=== PATIENT | female | born 1970 | race Caucasian/White ===

== ENCOUNTER 2022-06-23 14:40 | Outpatient (CLI) | payer OTHER, SELFPAY ==
--- NOTE | 2022-06-23 15:00 | CRLHL7_ITS ---
For Patients: As a result of the Century Cures Act, medical imaging exams and procedure reports are released immediately into your electronic medical record. You may view this report before your referring provider. If you have questions, please contact your health care provider. BILATERAL SCREENING MAMMOGRAM WITH COMPUTER-AIDED DETECTION AND TOMOSYNTHESIS TECHNIQUE: CC and MLO views were obtained. These mammographic images have been obtained using full-field digital technique. These mammographic images were interpreted with the benefit of computer-aided detection. Breast tomosynthesis was used in this interpretation. COMPARISON FILM: 06/20/21, 06/06/20, 05/30/19. FINDINGS: The breasts are heterogeneously dense, which may obscure small masses. IMPRESSION: There is no radiographic evidence for malignancy. ASSESSMENT: BI-RADS Category 1: Negative RECOMMENDATION: Routine screening mammogram in 1 year. A lay language report of this examination will be provided to the patient. CAL EDWARDS M.D. Diagnostic Radiologist [email or web address] Transcribed: 2:[address]/Dictated by: Cal Edwards MD @ 06/24/2022 9:13:00 AM (Electronically Signed)
== END 2022-06-23 14:41 | disposition home or self-care (01) ==
LOC: MAMMO 14:43
PROVIDERS: Visit Provider Family Medicine
DX: Z12.31 Encounter for screening mammogram for malignant neoplasm of breast (principal); R92.2 Inconclusive mammogram
CPT/HCPCS: 77063; 77067

== ENCOUNTER 2022-10-19 13:15 | Outpatient (CLI) | payer OTHER, SELFPAY ==
[2022-10-19 10:06] LABS: Albumin* 4.3 g/dL (3.3-5.0); Chloride* 104 mmol/L (96-114); Potassium* 4.1 mmol/L (3.6-5.1); Sodium* 139 mmol/L (135-149)
[2022-10-19 10:08] LABS: Carbon Dioxide* 29 mmol/L (20-32); Cholesterol* 220 mg/dL (90-199); Creatinine* 0.8 mg/dL (0.5-1.5); Estimated Glomerular Filt Rate 88 ml/min
[2022-10-19 10:09] LABS: Alanine Aminotransferase* 29 U/L (4-35); Alkaline Phosphatase* 53 U/L (40-150); Aspartate Amino Transferase* 30 U/L (12-35); Bilirubin Total* 0.9 mg/dL (0.1-1.5); Blood Urea Nitrogen* 13 mg/dL (7-30); Calcium* 9.2 mg/dL (8.4-10.6); Glucose* 114 mg/dL (60-115); HDL Cholesterol* 40 mg/dL (>=50); LDL Cholesterol Calculated 144 mg/dL (<100); Total Protein* 7.3 g/dL (6.0-8.3); Triglycerides* 182 mg/dL (40-149)
== END 2022-10-19 13:16 | disposition home or self-care (01) ==
PROVIDERS: Visit Provider Family Medicine
DX: E78.5 Hyperlipidemia, unspecified (principal)
CPT/HCPCS: 80053; 80061

== ENCOUNTER 2023-07-09 12:41 | Outpatient (CLI) | payer OTHER, SELFPAY ==
--- NOTE | 2023-07-09 13:00 | CRLHL7_ITS ---
For Patients: As a result of the Century Cures Act, medical imaging exams and procedure reports are released immediately into your electronic medical record. You may view this report before your referring provider. If you have questions, please contact your health care provider. BILATERAL SCREENING MAMMOGRAM WITH COMPUTER-AIDED DETECTION AND TOMOSYNTHESIS TECHNIQUE: CC and MLO views were obtained. These mammographic images have been obtained using full-field digital technique. These mammographic images were interpreted with the benefit of computer-aided detection. Breast Tomosynthesis was used in this interpretation. COMPARISON FILM: 06/23/22, 06/20/21, 06/06/20. FINDINGS: The breasts are heterogeneously dense, which may obscure small masses IMPRESSION: There is no radiographic evidence for malignancy. ASSESSMENT: BI-RADS Category 1: Negative RECOMMENDATION: Routine screening mammogram in 1 year. A lay language report of this examination will be provided to the patient. Cal Kimbrough M.D. Diagnostic Radiologist [email or web address] OSCAR/Dictated by: Cal Kimbrough MD @ 07/12/2023 11:58:00 AM (Electronically Signed)
== END 2023-07-09 12:42 | disposition home or self-care (01) ==
LOC: MAMMO 12:42
PROVIDERS: PCP Family Medicine; Visit Provider Family Medicine
DX: Z12.31 Encounter for screening mammogram for malignant neoplasm of breast (principal); R92.2 Inconclusive mammogram
CPT/HCPCS: 77063; 77067

== ENCOUNTER 2023-10-21 07:24 | Outpatient (CLI) | payer OTHER, SELFPAY | END 2023-10-21 07:25 | disposition home or self-care (01) | LOC: NFLDREF 13:39 | PROVIDERS: PCP Family Medicine; Referring Provider Family Medicine; Visit Provider Family Medicine | DX: Z01.419 Encounter for gynecological examination (general) (routine) without abnormal findings (principal); R10.9 Unspecified abdominal pain; E78.5 Hyperlipidemia, unspecified; R73.01 Impaired fasting glucose; R53.83 Other fatigue | CPT/HCPCS: 80053; 80061 ==

== ENCOUNTER 2023-10-26 07:56 | Outpatient (CLI) | payer OTHER, SELFPAY | END 2023-10-26 07:57 | disposition home or self-care (01) | PROVIDERS: PCP Family Medicine; Visit Provider Family Medicine | DX: R10.33 Periumbilical pain (principal) | CPT/HCPCS: 82150; 83690 ==

== ENCOUNTER 2023-11-02 08:25 | Outpatient (CLI) | payer OTHER, SELFPAY ==
--- NOTE | 2023-11-02 09:00 | CT_ITS ---
Patient: WENDY PRATER Facility:?[facility] Patient ID:?[id number] Site Patient ID:?[id number] Site :?[id number] Study:?CT-Abdomen/Pelvis W/ 64CC ISOVUE 370-11/02/2023 9:24:03 AM Ordering Physician:WILIAM Final Report: INDICATION: Right lower quadrant abdominal pain TECHNIQUE: Axial images were obtained from the diaphragm to the pubic symphysis. Reformats were obtained in the coronal and sagittal plane. IV Contrast: 64 cc Isovue 370 Oral Contrast: None COMPARISON: None. FINDINGS: Lower chest: Unremarkable. Liver: Unremarkable. Normal in size and attenuation. No masses. Gallbladder and bile ducts: Unremarkable. No stones or inflammation. No biliary dilatation. Spleen: Unremarkable. Normal in size without mass. Pancreas: Unremarkable. No mass or inflammation. Adrenal glands: Unremarkable. No nodules. Kidneys: Unremarkable. No masses, stones, or hydronephrosis. Vasculature: Unremarkable. GI tract: No dilated loops of large or small intestine with a large amount of stool within the colon. Appendix unremarkable. Pelvis: Lobulation of the uterus consistent with leiomyomata. Large pelvic mass centrally within the pelvis measuring 9.5 x 13.2 x 12.6 centimeters. This is inseparable from the fundus of the uterus and extends cephalad to the level of the umbilicus. Bones: Unremarkable for age. IMPRESSION: Large pelvic solid mass measuring up to 13.2 centimeters involving most of the pelvis extending to the level of the umbilicus. Differential diagnosis includes a pedunculated fibroid or ovarian mass. Follow-up pelvic ultrasound or alternatively pelvic MRI considering its size suggested for further characterization. Please note that all CT scans at this facility use dose modulation, iterative reconstruction, and/or weight-based dosing when appropriate to reduce radiation dose to as low as reasonably achievable. Dictated by Sd Coleman MD @ 11/02/2023 9:41:49 AM ----- ADDENDUM ----- Results confirmed with Dr. Lutz at 12:06 on 11/02/2023. Dictated by Sd Colemna MD @ Nov 02 2023 12:10PM Signed by:?Sd Coleman MD @11/02/2023 9:41:49 AM (Electronic Signature)
== END 2023-11-02 08:26 | disposition home or self-care (01) ==
PROVIDERS: PCP Family Medicine; Visit Provider Family Medicine
DX: R19.00 Intra-abdominal and pelvic swelling, mass and lump, unspecified site (principal); D25.9 Leiomyoma of uterus, unspecified; R93.89 Abnormal findings on diagnostic imaging of other specified body structures; R10.9 Unspecified abdominal pain
CPT/HCPCS: 74177; Q9967

== ENCOUNTER 2023-11-03 15:37 | Outpatient (CLI) | payer OTHER, SELFPAY ==
--- NOTE | 2023-11-03 16:00 | US_ITS ---
Patient: WENDY PRATER Facility:?[facility] Patient ID:?[id number] Site Patient ID:?[id number]. Site :?[id number] Study:?US-Pelvis TA/TV-11/03/2023 4:48:50 PM Ordering Physician:WILIAM Final Report: INDICATION: Uterine mass seen on CT. Incident of postmenopausal bleeding. TECHNIQUE: Transabdominal and transvaginal scanning was performed. Transvaginal scanning was performed to optimally evaluate the endometrium and adnexa. Ovarian blood flow was evaluated with color-flow doppler. COMPARISON: Abdomen/pelvis CT of 11/02/2023 FINDINGS: A 14.0 x 13.0 x 9.3 cm subserosal fibroid arises from the posterior uterine fundus. Excluding this fibroid, the uterus measures 9.1 x 3.2 x 4.0 cm. The postmenopausal endometrial stripe is thickened at 6 mm. The right ovary is not visualized. The left ovary is normal in appearance, measuring 1.8 x 1.1 x 0.9 cm. Left ovarian blood flow is demonstrated with color-flow doppler. No adnexal mass is evident. A tiny amount of free fluid is noted. IMPRESSION: 1. 14.0 x 13.0 x 9.3 cm subserosal posterior uterine fundal fibroid. 2. Mildly thickened post menopausal endometrial stripe at 6 mm. 3. Tiny amount of free fluid. Dictated by Deepak Lerner MD @ 11/04/2023 9:10:46 AM Signed by:?Deepak Lerner MD @11/04/2023 9:10:46 AM (Electronic Signature)
== END 2023-11-03 15:38 | disposition home or self-care (01) ==
LOC: US 15:38
PROVIDERS: PCP Family Medicine; Visit Provider Family Medicine
DX: R19.00 Intra-abdominal and pelvic swelling, mass and lump, unspecified site (principal); D25.9 Leiomyoma of uterus, unspecified; R93.89 Abnormal findings on diagnostic imaging of other specified body structures
CPT/HCPCS: 76830; 76856

== ENCOUNTER 2023-11-23 12:05 | Inpatient (IN) | payer OTHER, SELFPAY ==
[2023-11-23] VITALS (20 sets, daily range): BP systolic 93–145; BP diastolic 66–89; PULSE 65–94; RESP 14–26; TEMP 36.1–37.4; O2SAT 95–99; BMI 24.5
[2023-11-23 08:59] LABS: Ur HCG Qualitative* Negative (Negative)
[2023-11-23] MEDS: SODIUM CHLORIDE 0.9 % (FLUSH) 10 ML SYRINGE IVF (09:00)
[2023-11-23] MEDS: LACTATED RINGERS 1000 ML 1,000 ML 100 ML IV ×2 (09:00→10:28)
--- NOTE | 2023-11-23 09:29 | W.PM.H&PU ---
History & Physical Update History & Physical Update H&P Reviewed and patient assessed: No changes noted H&P Updates: Ms. Guzman is a 53yo seen in pre-op prior to planned total abdominal hysterectomy, bilateral salpingo-oophorectomy, diagnostic cystoscopy in the setting of fibroid uterus. She is s/p pre-op clearance by Dr. Lutz on 11/18. Trish is feeling well this morning, no acute concerns. We discussed planned procedure in detail. Trish has considered her options in detail and affirmed her desire for bilateral oophorectomy, added this to consent. We discussed that I will either proceed with her surgery via a Pfannenstiel or midline vertical incision, she is comfortable with be making a decision after exam under anesthesia. We discussed risks including bleeding (particularly in the setting of fibroid uterus), infection and damage to surrounding structures. She has no yarsanism/ethical reason she would decline blood, active type and screen obtained this morning. Discussed the preferred antibiotic for hysterectomy is Ancef, where patient does have a penicillin allergy. She notes when she was a toddler she had a rash and breathing trouble with penicillin, has never taken this since. She is not certain if she has ever had a prior cephalosporin. Plan to discussed with Anesthesiology, with likely plan to proceed with Ancef (possible test dose) given low likelihood of crossreactivity. Plan to stay 1-2 nights in the hospital post procedure. We discussed dismissal criteria. Briefly reviewed postop restrictions and return precautions. All questions answered.
[2023-11-23 09:32] LABS: Hemoglobin* 16.8 gm/dL (12.0-16.0)
[2023-11-23] MEDS: CEFAZOLIN 2 GM INJ IVP (09:55)
[2023-11-23 09:58] LABS: Creatinine* 0.9 mg/dL (0.5-1.5); Est. Creatinine Clearance* 50.73; Estimated Glomerular Filt Rate 76 ml/min
[2023-11-23] MEDS: VASOPRESSIN 20 UNIT/ML INJ 8 UNIT INJECTION (10:46)
--- NOTE | 2023-11-23 10:56 | P.NB_ITS ---
Nerve Block Nerve Block Time Seen by Provider: 09:50 Date Seen: 11/23/23 Type of block requested by surgeon for post-operative analgesia: TAP Side: bilateral Time out performed: Yes Verification of patient name: Yes Verification of date of : Yes Site marking: site marked Name of person performing procedure: Yosi Continuous monitoring Was continuous monitoring of O2 sat, B/P, property assessment monitor, recorded every 15 minutes?: Yes Procedure Checklist: sterile prep, needles and gloves Ultrasound guided. Images saved: Yes Medications given in 5ml increments after negative aspiration: Marcaine %: 0.25 mL: 30 Needle gauge: 20 and Exparel mL: 10 Patient tolerated procedure well: Yes Additional comments: Needle noted between internal oblique and transversus abdominus. Local spread visualized Block Charges Block Charge (with Pro Fee): TAP Bilateral Use of Ultrasound Machine for Block: Yes- US Guidance/pain block
--- NOTE | 2023-11-23 10:57 | W.ANESCHARGE ---
Anesthesia Charges Start Date/Time Anesthesia Start Date: 11/23/23 Anesthesia Start Time: 09:42 Stop Date/Time Anesthesia Stop Date: 11/23/23 Anesthesia Stop Time: 12:14
--- NOTE | 2023-11-23 12:11 | W.PM.GYNPROC ---
Procedure Note Time Seen by Provider: 11:58 Date of procedure: 11/23/23 Pre-op diagnosis: Symptomatic fibroid uterus Post-op diagnosis: same Procedure: Total abdominal hysterectomy, bilateral salpingo-oophorectomy, diagnostic cystoscopy Anesthesia: GETA Complications: None Surgeon: Ghassan Mccord MD Biomass Plant Technician: Trish Stanford Estimated blood loss (mL): 250 IV fluids (mL): 1,700 Urine Output (mL): 100 Pathology: specimen obtained, sent to pathology Condition: stable Disposition: floor Findings: Large subserosal fibroid arising from the left posterior uterine fundus Bilateral paratubal cysts, otherwise unremarkable tubes and ovaries Pelvic congestion along the left adenxa, likely due to additional recruitment from fibroid Negative diagnostic cystoscopy, bilateral ureteral efflux Procedure Description: After obtaining informed consent, the patient was taken to the operating room where general anesthesia was obtained without difficulty. She was prepared and draped in the normal sterile fashion in the dorsal supine position. She received Ancef for perioperative prophylaxis, after an unremarkable test dose was administered by anesthesia. Surgical pause was completed to confirm patient and intended procedure. A Stein catheter was inserted sterilely into the bladder. A Pfannenstiel skin incision was made with a scalpel. This incision was carried down to the underlying layer of fascia with the Bovie. The fascia was incised in the midline and the incision extended laterally. The superior and inferior aspects of the fascial incision were grasped with Monalisa clamps and the underlying rectus muscles dissected off sharply. The rectus muscles were in the midline. The underlying peritoneum was identified and entered bluntly. The peritoneal incision was extended superiorly and inferiorly with good visualization of the bladder. The patient was placed in mild Trendelenburg positioning. The bowels were packed cephalad using a large moistened laparotomy sponge. The Daniel O retractor was placed in the incision. This provided excellent visualization of the pelvis. Given the size and location of the fibroid, the uterus was exteriorized to allow for anatomic survey. The pelvis was inspected with the findings noted above. Dilute vasopressin (20U in 50mL) was injected at the base of the fibroid, total 20mL. Gaston clamp was placed at the right for traction, the same could not be performed on the left due to size/location of the fibroid. Both ureters were identified along their courses within the pelvic sidewall. We began with the left adnexal structures, where a Babcok clamp was utilized to elevate the left tube and ovary. Ligasure was utilized to sequentially ligate along the infundibulopelvic ligament and ovarian vessels, staying well away from the ureter. I continued to sequentially ligate and transect the adnexal structures off the peritoneum working lateral to medial toward the round and utero-ovarian ligaments. The round ligament was separately ligated and transected with ligasure, meeting the site of former dissection of adnexal structures. We then came across the utero-ovarian ligament with ligasure, where the left adnexal structures were transected and removed from the field. Anterior leaf of the broad ligament was elevated and a bladder flap was developed to the midline. Attention was then turned to the right, where the right adnexal structures were similarly ligated/transected and removed. The round ligament was similarly transected with Ligasure, and bladder flap developed with a combination of electrocautery and blunt dissection. Cervical elongation was noted on palpation, where a vaginal probe was inserted to better delineate between the vagina and cervix. The bladder flap was developed until it was noted to be well below the site of planned colpotomy. The left uterine vessels were skeletonized, then serially ligated and transected with Ligasure. Bleeding was noted at both the patient and specimen side, where a curved Gilmar clamp was utilized to grasp the distal pedicle and bounce off the patient's cervix with control of bleeding noted. Pedicle was transected with Rose scissors and secured with 0 vicryl Gimlar stitch. The right uterine vessels were skeletonized, then clamped with a curved Gilmar clamp, transected with Mayos and ligated with 0 vicryl Gilmar stitch. Straight Gilmar clamps were applied parallel to the left cervix, working inferiorly toward the site of planned colpotomy to take down the remaining cardinal and uterosacral ligament attachments. Vaginal probe was utilized intermittently to aid in identification of site of planned colpotomy. Pedicles were transected with long 15 blade and secured with 0 vicryl Gilmar stitch. A total of 3 bites were required to adequately obtain hemostasis and access to site of planned colpotomy on the left, all completed in the same fashion. The same was performed on the right, where only 2 lateral cervical bites were required. Excellent hemostasis was noted and site of planned colpotomy was clear. The vagina was entered sharply on the left just distal to the cervix. Colpotomy was completed with Raya scissors. The bilateral corners of the cuff were grasped with Monalisa clamps and elevated. Betadine swab was utilized across the vaginal cuff, then removed from the field. The right vaginal cuff angle was secured with 0 vicryl suture, where the cuff was subsequently closed from right to left in a running locking fashion. Care was made to incorporate the bilateral uterosacral ligaments for vaginal suspension. At the mid-cuff, oozing was noted posteriorly just inferior to prior cuff closure. An additional figure of eight stitch was applied with 0 vicryl, excellent hemostasis noted. All pedicles were inspected and noted to be hemostatic. The pelvis was copiously irrigated with warm normal saline. Additional irrigation was then performed with warm sterile water, where no active bleeding was noted. Cesar was applied across the vaginal cuff over raw edges for additional hemostasis. The bowel pack and Daniel retractor were removed. Vaginal probe was removed. Diagnostic cystoscopy was then performed, with no apparent bladder injury and bilateral ureteral efflux noted. Final inspection of the pelvis confirmed excellent hemostasis. The superior and inferior fascia were respectively grasped with Monalisa clamps and elevated, where excellent hemostasis of the rectus abdominis muscles was noted. The fascia was reapproximated in a running fashion with an 0 vicryl suture. The subcutaneous tissues were copiously irrigated and hemostasis assured. The subcutaneous adipose layer was reapproximated with interrupted sutures of 3-0 vicryl. The skin was closed in a subcuticular fashion with 3-0 monocryl. LiquiBand and a dressing were applied. The patient tolerated the procedure well. Sponge, lap, needle, instrument counts were reported as correct x2. The patient was taken to recovery room awake and in stable condition. Surgical debrief completed. Procedure as listed with no apparent complications or concerns from any OR staff. EBL 250mL, UOP 100mL, IVF 1700mL. Specimens include uterus/cervix, bilateral tubes and ovaries were sent to pathology.
--- NOTE | 2023-11-23 12:17 | W.ANESCHARGE ---
Anesthesia Charges Start Date/Time Anesthesia Start Date: 11/23/23 Anesthesia Start Time: 09:42 Stop Date/Time Anesthesia Stop Date: 11/23/23 Anesthesia Stop Time: 12:14
[2023-11-23] MEDS: fentaNYL 100 MCG/2 ML inj 50 MCG IVP (12:18)
[2023-11-23] MEDS: HYDROmorphone 0.5 mg/0.5 ml inj 0.2 MG IVP ×4 (13:22→21:02)
[2023-11-23] MEDS: OXYCODONE 5 MG TABLET PO ×3 (14:36→23:54)
[2023-11-23] MEDS: hydrOXYzine pamoate 25 MG CAPSULE PO (16:44)
[2023-11-23] MEDS: KETOROLAC 15 MG/ML inj IVP ×2 (18:19→23:54)
--- NOTE | 2023-11-23 19:03 | PC.NURSE ---
End of SHift: The patient is plesant and cooperative. VSS on RA. Pain controlled with PRN diluadid/ oxycodone and scheduled tordal. The patient initially had moderate back pain... which has now subsided to abdominal pain. Horizontal incision is CDI... Stein is patent and draining. Per patient request she would like to keep it in overnight for comfort/pain. Ice pack to abdomen as tolerated by the patient. Tolerating food and liquids well with no N/V. Walked with the patient in the halls this evening, tolerated this well. Minimal bleeding throughout the shift. Call light within reach. Loyda MICHAEL BSN
[2023-11-23] MEDS: SIMETHICONE 80 MG TAB.CHEW 160 MG PO (19:44)
[2023-11-24 03:41] VITALS: BP 123/59; PULSE 67; RESP 16; TEMP 37.2; O2SAT 98
[2023-11-24] MEDS: OXYCODONE 5 MG TABLET PO ×4 (03:54→21:24)
[2023-11-24] MEDS: KETOROLAC 15 MG/ML inj IVP ×3 (05:46→18:47)
[2023-11-24 06:35] LABS: Hemoglobin* 13.3 gm/dL (12.0-16.0)
--- NOTE | 2023-11-24 06:46 | PC.NURSE ---
End of shift note [id number]: Pt alert & oriented x 4 and able to make needs known. She has been transferring/ambulating in hallway with SBA using IV pole. Pt walked in hallway twice this shift. Stein catheter in place with clear urinary output. Dressing to abdomen noted to be C/D/I upon inspection. VSS and pt has been afebrile. No c/o CP or N/V throughout the shift. IV to L hand patent and SL. Abdominal and lower back pain controlled with ice, heat, scheduled Toradol and PRN Oxycodone throughout the shift. Minimal amount of blood noted from urethra. Pt ambulated in hallway last evening and tolerated activity well. She reported walking helped decrease lower back pain she has experienced since after surgery. Pain to lower back and abdomen has been 3-4/10 throughout the shift per pt report. She is tolerating po food and fluids well with no N/V.
[2023-11-24 07:00] VITALS: BP 113/49; PULSE 78; RESP 16; TEMP 36.9; O2SAT 98
[2023-11-24] MEDS: SIMETHICONE 80 MG TAB.CHEW 160 MG PO ×2 (08:10→15:10)
[2023-11-24] MEDS: ACETAMINOPHEN 325 MG TABLET 650 MG PO ×3 (08:10→21:24)
--- NOTE | 2023-11-24 08:50 | PM.GYNPNPO ---
DIRECTOR PHARMACY SERVICES - A/P Assessment and plan (1) Fibroid: Status: Acute (2) Abdominal pain: Status: Acute Plan Ms. Guzman is a 53yo seen on POD1 from [facility], BSO and cystoscopy for large/symptomatic fibroid uterus. Unremarkable post-op course to present. VS are within normal limits, adequate UOP. AM Hgb 13.3, from 16.8 which was likely hemoconcentrated due to no PO intake after 1900 the evening before surgery and bowel prep. She is making excellent progress on post-op milestones. She is ambulating without difficulty and tolerating PO intake. Pain has been overall tolerable, but she notes it certainly waxes/wanes in intensity. Continue NSAIDs, tylenol and oxycodone PRN for primary pain management. IV dilaudid is available for severe pain, however I am hopeful we can continue to work on pain control with a PO regimen alone to work toward dismissal. She is voiding spontaneously, but this was only once and very small volume (but occurred almost immediately following catheter removal). Explained this is not concerning, where I'd recommend continued PO hydration and continued spontaneous voiding. Discussed signs/symptoms of urinary retention. She has yet to pass gas or BM, bowel regimen ongoing. Discussed ambulation, gum and simethicone PRN to encourage return of bowel function and for symptomatic management. Anticipate dismissal to home tomorrow, pending pain control and return of bowel function. If these occur today, we could consider dismissal this evening. Postoperative Procedures: Procedures Operation Date: 11/23/23 10:10 Actual Procedure Side Surgeon p Abdominal Hysterectomy, Cystoscopy, Bilateral Salpingo-oophorectomy Bilateral Kathleen Mccord MD Postoperative day: 1 Postoperative status: doing well Postoperative plan: routine post-op care Time Spent With Patient Time: Total time spent is greater than 50% in coordination of care (as documented) at patient's floor/unit and/or counseling patient: Time with patient: less than 15 minutes DIRECTOR PHARMACY SERVICES- PN:Subj Post-Op Subjective Time Seen by Provider: 07:40 Date Seen: 11/24/23 Post Operative Details: Ms. Guzman is a 53yo seen on POD1 from [facility], BSO and cystoscopy on 11/22 performed in the setting of symptomatic fibroid uterus. Her surgery and post-op course have been uncomplicated. She notes difficulty sleeping overnight, mostly related to gas pain. She notes pain is tolerable with use of analgesic medicines, but she definitely notices when these are wearing off. She has been on PO analgesics, last IV dilaudid at 2100. She is tolerating PO intake without nausea/vomiting. Ambulates without dizziness/lightheadedness. Her rice was just removed where she had a tiny spontaneous void 10 minutes later. She has yet to pass gas or a BM. Notes scant vaginal bleeding. DIRECTOR PHARMACY SERVICES-PN: Obj Exam Physical Exam: Vital signs: Temp Pulse Resp BP Pulse Ox O2 Del Method 98.9 F 67 16 123/59 L 98 Room Air 11/24/23 03:41 11/24/23 03:41 11/24/23 03:41 11/24/23 03:41 11/24/23 03:41 11/24/23 03:41 Narrative: General: Alert and oriented, in no acute distress. Seated in chair next to hospital bed, eating breakfast. Psych: Appropriate mood and affect Abdomen: Soft, non-distended. Mild tenderness to palpation, greatest on right superior to incision. No rebound or guarding. Surgical dressing in place, clean/dry without shadowing. Urinary Catheter Management: Urethral: Cath placed during this visit: yes Urethral indwelling: No Reason for continuing: surgical procedure Insertion date: 11/23/23 Insertion time: 10:21 DIRECTOR PHARMACY SERVICES - PN: Obj Data Labs Labs: Laboratory Results - last 24 hr 11/23/23 11/23/23 11/24/23 08:50 09:16 06:16 Hgb 16.8 H 13.3 Creatinine 0.9 Estimated Creat Clear 50.73 Estimated GFR 76 Urine HCG, Qual Negative Blood Type AB Positive Antibody Screen NEGATIVE
[2023-11-24 11:00] VITALS: BP 111/71; PULSE 79; RESP 16; TEMP 36.5; O2SAT 97
[2023-11-24 15:00] VITALS: BP 127/67; PULSE 78; RESP 16; TEMP 36.4; O2SAT 97
[2023-11-24 19:00] VITALS: BP 103/87; PULSE 75; RESP 16; TEMP 36.8; O2SAT 95
--- NOTE | 2023-11-24 19:45 | PC.NURSE ---
End of shift: Patient alert and oriented x4. Pleasant and cooperative. Patient tolerating a reg. diet. VSS. Patient voiding well after removal of Stein this morning. Patient is also reporting that she is passing gas. Patient using PRN tylenol and oxy for pain. minimal bleeding on pad noted. Patient ambulating hallways independently.
[2023-11-24 23:00] VITALS: BP 110/63; PULSE 77; RESP 16; TEMP 36.8; O2SAT 96
[2023-11-25 02:06] VITALS: BP 126/64; PULSE 77; RESP 16; TEMP 36.8; O2SAT 98
[2023-11-25] MEDS: ACETAMINOPHEN 325 MG TABLET 650 MG PO (04:28)
[2023-11-25] MEDS: OXYCODONE 5 MG TABLET PO ×2 (04:29→11:07)
--- NOTE | 2023-11-25 05:10 | PC.NURSE ---
Patient pleasant, alert and oriented. Ambulated independently in room and hallway x during night. Tolerating regular diet. Urine was blood tinged earlier this shift but is now ruel colored. Scant amount of blood on panty liner. Incision open to air, has red and purple bruising; no drainage. ?Was given PRN Tylenol and Oxycodone at bedtime to prevent pain during the night and again at 0430 for c/o pain rated 4/10.?
[2023-11-25 07:00] VITALS: BP 122/68; PULSE 84; RESP 16; TEMP 36.6; O2SAT 98
--- NOTE | 2023-11-25 08:14 | P.DS_ITS ---
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 Her surgery was uncomplicated. Her postoperative course was also uncomplicated. By postoperative day 2, she was tolerating a regular diet, ambulating without difficulty, passing flatus and pain was well controlled with oral pain medications. She would like to be discharged home today. Labs: Preoperative hemoglobin 16.8, postoperative hemoglobin 13.3. Objective: General: Alert and oriented x3. Pleasant, woman in no acute distr ess. Vital signs: See EMR. Heart: Regular rate and rhythm without gallop, rub or murmur. Chest: Clear to auscultation bilaterally. Abdomen: Soft, nontender, nondistended with normal bowel sounds throughout. No CVA or flank tenderness. Incision(s): Clean, dry and intact w/ sutures and skin adhesive. Pelvic: Minimal vaginal bleeding, remainder of pelvic exam deferred. Extremities: No pain, edema, cyanosis or clubbing. Assessment: 53-year-old postoperative day 2 from a total abdominal hysterectomy with bilateral salpingo oophorectomy doing well. Plan: 1. Discharge home today. 2. Activity restrictions reviewed with the patient. 3. Return to clinic to see Dr. Mccord for a postoperative visit in 2-3 weeks. 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 Physical Exam: Vital signs: Temp Pulse Resp BP Pulse Ox O2 Del Method 98.2 F 77 16 126/64 98 Room Air 11/25/23 02:06 11/25/23 02:06 11/25/23 02:06 11/25/23 02:06 11/25/23 02:06 11/25/23 02:06 [employer]CH[employer]QUIPMENT [employer]SEMBLER - DS: Data Procedures Procedures: Procedures Operation Date: 11/23/23 10:10 Actual Procedure Side Surgeon p Abdominal Hysterectomy, Cystoscopy, Bilateral Salpingo-oophorectomy Bilateral Kathleen Mccord MD Discharge Plan Discharge Disposition: Home, Self-Care Date of Admission: 11/23/23 12:05 Attending Provider on Discharge: Trish Stanford Primary Care Provider: Sarah Lutz Condition: Stable Anticipated Discharge Date/Time: 11/25/23 10:00 Discharge Medications: New ibuprofen 600 mg tablet 600 mg PO QID PRNQty: 30 0RF docusate sodium 100 mg tablet 100 mg PO BID PRNQty: 100 0RF oxycodone 5 mg Tablet 5 - 10 mg PO 3XD PRN (Reason: Moderate Pain) Qty: 21 0RF Continued multivit with min-folic acid [One-A-Day Women's 50 Plus] 0.4 mg tablet PO hydroxyzine pamoate 25 mg capsule 25 mg PO QHS Qty: 14 0RF spironolactone 50 mg tablet 50 mg PO QDAY rosuvastatin [Crestor] 5 mg tablet 5 mg PO QDAY Qty: 90 3RF Discharge Orders: Discharge Order (Routine); Ordered 11/25/23 Ordered By: Trish Stanford Patient Education: Hysterectomy (DC) Additional Instructions: ACTIVITY RESTRICTIONS: Nothing vaginally for 6 weeks: no tampons/intercourse No driving while taking narcotic pain medication during the day. 1-2 weeks. Lifting restriction: Maximum of 20 pounds for 6 weeks. High impact or core exercises: 6 weeks. Submerge the incisions in water (bath/pool/rodriguez): 2 weeks. Off of work/school for a minimum of 6 weeks NO RESTRICTIONS for: Walking Going up/down stairs Showering Passenger in a motor vehicle Symptoms to report to your doctor Bleeding that is red, like a moderate period Passing clots larger than the size of a golf ball Pain not relieved by prescribed medication Fever above 100.4 degrees Fahrenheit A foul vaginal odor Decrease in urination or painful, frequent urinating Chest pain Shortness of breath Tenderness or pain with redness and/swelling in the calf(s) of your leg Follow-up Appointments: 1. [facility] 2-3 weeks for an incision check. 2. A 6 week postop visit to verify that the vaginal cuff is well-healed. Discharge Diet: Regular Follow Up Appointments: Sarah Lutz MD [Primary Care Provider] - Kathleen Mccord MD [Staff Physician] - Forms: [employer] Info Instructions
[2023-11-25] MEDS: IBUPROFEN 600 MG TABLET PO (08:42)
--- NOTE | 2023-11-25 11:41 | PC.NURSE ---
Discharge - Pt alert, orientedx4, cooperative and pleasant. Tolerating RA, regular diet, fluids. Pt reported abdominal pain rated as 2/10 during shift. PRN medication given per MAR with verbalized improvement and ice pack present on site. Wound open to air, no blood or drainage noted. Pt observed to ambulate independently in halls several times. Discharge education given with verbalized understanding. IV removed with catheter intact. Pt discharged to home with spouse via wheelchair at approximately 1125.
== END 2023-11-25 11:25 | disposition home or self-care (01) | DRG 743 ==
LOC: OR 14:59 → MEDSURG 11-25 08:16
PROVIDERS: Admitting Provider Obstetrics & Gynecology; PCP Family Medicine; Visit Provider Obstetrics & Gynecology
PROC: 0UT94ZZ Resection of Uterus, Percutaneous Endoscopic Approach (ICD-10-PCS; CPT 52000; principal; 2023-11-23 10:00)
DX: D25.2 Subserosal leiomyoma of uterus (principal); N83.8 Other noninflammatory disorders of ovary, fallopian tube and broad ligament; G89.18 Other acute postprocedural pain
CPT/HCPCS: 00840; 36415; 64488; 76942; 81025; 82565; 85018; 86850; 86900; 86901; 88307; A9270; J0690; J1100; J1170; J1885; J2250; J2371; J2405; J2704; J3010; J3475; J3490; J7120

== ENCOUNTER 2023-12-08 09:33 | Outpatient (CLI) | payer OTHER, SELFPAY | END 2023-12-08 09:34 | disposition home or self-care (01) | LOC: NFLDREF 09:34 | PROVIDERS: PCP Family Medicine; Visit Provider Obstetrics & Gynecology | DX: R23.2 Flushing (principal); Z13.228 Encounter for screening for other metabolic disorders | CPT/HCPCS: 80048 ==

== ENCOUNTER 2024-02-14 15:00 | Outpatient (RCR) | payer OTHER, SELFPAY | END 2024-04-03 13:19 | disposition home or self-care (01) | PROVIDERS: PCP Family Medicine; Visit Provider Obstetrics & Gynecology | DX: M25.552 Pain in left hip (principal); N81.89 Other female genital prolapse; R35.0 Frequency of micturition; R53.1 Weakness; M62.89 Other specified disorders of muscle; Z74.09 Other reduced mobility; R29.898 Other symptoms and signs involving the musculoskeletal system; Z98.890 Other specified postprocedural states; Z51.89 Encounter for other specified aftercare | CPT/HCPCS: 97110; 97140; 97162; 97530 ==

== ENCOUNTER 2024-07-10 13:07 | Outpatient (CLI) | payer OTHER, SELFPAY ==
--- NOTE | 2024-07-10 13:20 | CRLHL7_ITS ---
For Patients: As a result of the Century Cures Act, medical imaging exams and procedure reports are released immediately into your electronic medical record. You may view this report before your referring provider. If you have questions, please contact your health care provider. BILATERAL SCREENING MAMMOGRAM WITH COMPUTER-AIDED DETECTION AND TOMOSYNTHESIS TECHNIQUE: CC and MLO views were obtained. These mammographic images have been obtained using full-field digital technique. These mammographic images were interpreted with the benefit of computer-aided detection. Breast Tomosynthesis was used in this interpretation. COMPARISON FILM: 07/09/23, 06/23/22, 06/20/21. FINDINGS: The breasts are heterogeneously dense, which may obscure small masses. IMPRESSION: There is no radiographic evidence for malignancy. ASSESSMENT: BI-RADS Category 1: Negative RECOMMENDATION: Routine screening mammogram in 1 year. A lay language report of this examination will be provided to the patient. Avinash Osman M.D. Diagnostic/Nuclear Medicine Radiologist [email or web address] SP/Dictated by: Avinash Osman MD @ 07/12/2024 12:01:00 PM (Electronically Signed)
== END 2024-07-10 13:08 | disposition home or self-care (01) ==
LOC: MAMMO 13:08
PROVIDERS: PCP Family Medicine; Visit Provider Family Medicine
DX: Z12.31 Encounter for screening mammogram for malignant neoplasm of breast (principal); R92.333 Mammographic heterogeneous density, bilateral breasts
CPT/HCPCS: 77063; 77067

== ENCOUNTER 2024-11-14 08:20 | Outpatient (CLI) | payer OTHER, SELFPAY | END 2024-11-14 08:21 | disposition home or self-care (01) | LOC: NFLDREF 11-16 06:18 | PROVIDERS: PCP Family Medicine; Referring Provider Family Medicine; Visit Provider Family Medicine | DX: E78.5 Hyperlipidemia, unspecified (principal); R73.01 Impaired fasting glucose; N92.0 Excessive and frequent menstruation with regular cycle; Z79.899 Other long term (current) drug therapy | CPT/HCPCS: 80053; 80061 ==

== ENCOUNTER 2025-08-07 09:55 | Outpatient (CLI) | payer OTHER, SELFPAY ==
--- NOTE | 2025-08-07 10:15 | CRLHL7_ITS ---
For Patients: As a result of the Century Cures Act, medical imaging exams and procedure reports are released immediately into your electronic medical record. You may view this report before your referring provider. If you have questions, please contact your health care provider. INDICATION: BILATERAL SCREENING MAMMOGRAM, ASYMPTOMATIC 55 Y/O FEMALE COMPARISON: 07/10/2024, 07/09/2023, 06/23/2022 TECHNIQUE: Digital mammogram in CC and MLO projections including computer-aided detection (CAD) and tomosynthesis. BREAST COMPOSITION: The breasts are heterogeneously dense, which may obscure small masses. FINDINGS: No suspicious findings. ASSESSMENT: BI-RADS 1 Negative RECOMMENDATION: Annual screening mammogram. A lay language report of this examination will be provided to the patient. Dictated by: Cal Kimbrough MD @ 08/07/2025 11:00:50 (Electronically Signed)
== END 2025-08-07 09:56 | disposition home or self-care (01) ==
LOC: MAMMO 09:56
PROVIDERS: PCP Family Medicine; Visit Provider Family Medicine
DX: Z12.31 Encounter for screening mammogram for malignant neoplasm of breast (principal); R92.333 Mammographic heterogeneous density, bilateral breasts
CPT/HCPCS: 77063; 77067